=== PATIENT | female | born 1990 | race African-American/Black ===

== ENCOUNTER 2019-06-22 02:35 | Emergency (ER) | payer OTHER ==
[~2019-06-22] VITALS: Ht 162.6 cm; Wt 50.9 kg
[2019-06-22] MEDS ORDERED: ACETAMINOPHEN 325 MG TABLET PO ONE (03:00)
[2019-06-22] MEDS ORDERED: IBUPROFEN 400 MG TABLET PO ONE (03:00)
[2019-06-22] MEDS ORDERED: AMOXICILLIN TRIHYDRATE 250 MG CAPSULE PO ONE (04:30)
[2019-06-22 06:15] VITALS: BP 131/71
== END 2019-06-22 06:18 | disposition home or self-care (01) ==
LOC: EMS 02:37
DX: K02.9 Dental caries, unspecified (principal)